=== PATIENT | male | born 1970 | race Caucasian/White ===

== ENCOUNTER 2017-09-15 17:35 | Inpatient (IN) | payer MEDICAID ==
[2017-09-15] MEDS ORDERED: MOM 30ML SUSPENSION UDC PO (19:45)
[2017-09-15] MEDS: oxyCODONE 5MG TAB PO (22:34)
[2017-09-15] MEDS: GABAPENTIN 400 MG CAP PO (22:34)
[2017-09-15] MEDS: diazePAM 5 MG TAB PO (22:34)
[2017-09-16] MEDS: oxyCODONE 5MG TAB PO (08:10)
[2017-09-16] MEDS: ACETAMINOPHEN TAB 650MG DOSE (2X325MG) PO (11:58)
[2017-09-16] MEDS: GABAPENTIN 400 MG CAP PO ×2 (15:37→20:21)
[2017-09-16] MEDS: IBUPROFEN 800 MG TAB PO (15:37)
[2017-09-16] MEDS: MAALOX 30 ML SUSP *UDC PO ×2 (17:29→20:22)
[2017-09-16] MEDS: NICOTINE 21MG/24HR 1 EA TRANSDERMAL TD (18:08)
[2017-09-16] MEDS: cloNIDine 0.1 MG TAB PO (18:12)
[2017-09-16] MEDS: MIRTAZAPINE 15 MG TAB PO (20:21)
[2017-09-17] MEDS ORDERED: PREZISTA PO (09:00)
[2017-09-17] MEDS ORDERED: NORVIR PO (09:00)
[2017-09-17] MEDS ORDERED: DESCOVY PO (09:00)
[2017-09-17] MEDS: GABAPENTIN 400 MG CAP PO ×3 (10:15→20:21)
[2017-09-17] MEDS: NICOTINE 21MG/24HR 1 EA TRANSDERMAL TD (10:16)
[2017-09-17] MEDS: DULoxetine 30 MG CAP (CYMBALTA) PO (10:16)
[2017-09-17] MEDS: cloNIDine 0.1 MG TAB PO ×2 (10:23→20:23)
[2017-09-17] MEDS: IBUPROFEN 800 MG TAB PO (10:25)
[2017-09-17] MEDS: MAALOX 30 ML SUSP *UDC PO (10:26)
[2017-09-17] MEDS: QUEtiapine FUMARATE 25 MG TAB PO ×2 (11:56→20:22)
[2017-09-17] MEDS: ACETAMINOPHEN TAB 650MG DOSE (2X325MG) PO ×2 (13:22→20:21)
[2017-09-17] MEDS: MIRTAZAPINE 15 MG TAB PO (20:22)
[2017-09-17] MEDS: traZODone 50 MG TAB PO (20:22)
[2017-09-18] MEDS: DULoxetine 30 MG CAP (CYMBALTA) PO (08:02)
[2017-09-18] MEDS: GABAPENTIN 400 MG CAP PO (08:02)
[2017-09-18] MEDS: NICOTINE 21MG/24HR 1 EA TRANSDERMAL TD (08:02)
[2017-09-18] MEDS: cloNIDine 0.1 MG TAB PO ×2 (10:36→21:05)
[2017-09-18] MEDS: QUEtiapine FUMARATE 25 MG TAB PO ×2 (12:03→20:02)
[2017-09-18] MEDS: IBUPROFEN 800 MG TAB PO (15:05)
[2017-09-18] MEDS: GABAPENTIN 300 MG CAP PO ×2 (15:05→20:01)
[2017-09-18] MEDS: MIRTAZAPINE 15 MG TAB PO (20:01)
[2017-09-18] MEDS: traZODone 50 MG TAB PO (20:02)
[2017-09-18] MEDS: ACETAMINOPHEN TAB 650MG DOSE (2X325MG) PO (20:02)
[2017-09-19] MEDS: QUEtiapine FUMARATE 25 MG TAB PO (08:10)
[2017-09-19] MEDS: DULoxetine 30 MG CAP (CYMBALTA) PO (08:10)
[2017-09-19] MEDS: GABAPENTIN 300 MG CAP PO (08:10)
[2017-09-19] MEDS: NICOTINE 21MG/24HR 1 EA TRANSDERMAL TD (08:10)
[2017-09-19] MEDS: cloNIDine 0.1 MG TAB PO (08:11)
[2017-09-19] MEDS: IBUPROFEN 800 MG TAB PO (08:57)
[2017-09-19] MEDS: ACETAMINOPHEN TAB 650MG DOSE (2X325MG) PO (10:16)
== END 2017-09-19 14:40 | disposition home or self-care (01) | DRG 751 ==
LOC: M ED 17:35 → M ED INP 19:44 → M PSY 20:44
DX: F33.2 Major depressive disorder, recurrent severe without psychotic features (principal); B20 Human immunodeficiency virus [HIV] disease; G62.9 Polyneuropathy, unspecified; J44.9 Chronic obstructive pulmonary disease, unspecified; R45.851 Suicidal ideations; F60.2 Antisocial personality disorder; F10.10 Alcohol abuse, uncomplicated; F11.90 Opioid use, unspecified, uncomplicated; Z76.5 Malingerer [conscious simulation]; Z79.899 Other long term (current) drug therapy; G89.29 Other chronic pain; F41.9 Anxiety disorder, unspecified; F17.200 Nicotine dependence, unspecified, uncomplicated